=== PATIENT | female | born 1980 | race Caucasian/White ===

== ENCOUNTER 2019-10-17 01:13 | Emergency (ER) | payer OTHER ==
[~2019-10-17 01:13] MED LIST: ALPR1TAB PO; ARIP2TAB3 PO; HYDR-3470 PO; VORT10TA PO; [UNRECOGNIZED DRUG - CODE] PO
--- NOTE | 2019-10-17 01:45 | ER.PDOC ---
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 She experienced immediate pain which has worsened since the onset. Timing/Duration: this evening, constant Severity/Quality: severe Radiation: buttocks, upper legs Method of Injury: bending Modifying Factors: improves with immobilization, improves with pain medication (lortab) Associated Symptoms: sensory/motor loss (tingling lateral thighs) Allergies: Coded Allergies: latex (Unverified Allergy, Unknown, 09/18/14) Home Meds Reported Medications Vortioxetine Hydrobromide (Brintellix) 10 Mg Tablet, 10 MG PO, TABLET 09/18/14 Alprazolam (XANAX XR) 1 Mg Tab.er.24h, 1 TAB PO BID, #30 TAB 09/18/14 Aripiprazole (ABILIFY) 2 Mg Tablet, 1 TAB PO BID, #30 TAB 2 Refills 09/18/14 Hydrocodone Bit/Acetaminophen (NORCO 10-325 TABLET) 1 Each Tablet, 1 TAB PO BID PRN for PAIN, #60 TAB 09/18/14 Norethindrone A-E Estradiol (LOESTRIN) 1 Each Tablet, 1 TAB PO DAILY, #28 TAB 11 Refills 09/18/14 Past Medical History Medical History: other (chronic LBP managed by [facility]) Surgical History: appendectomy, cholecystectomy, tonsillectomy, other (piriformis release bilaterally) Review of Systems Constitutional: no symptoms reported EENTM: no symptoms reported Respiratory: no symptoms reported Cardiovascular: no symptoms reported Gastrointestinal: no symptoms reported Genitourinary: no symptoms reported Musculoskeletal: back pain Skin: no symptoms reported Physical Exam General Appearance: No Apparent Distress Cardiovascular/Respiratory: Regular Rate, Rhythm, No M/R/G Gastrointestinal: Normal Bowel Sounds Back: No CVA Tenderness, No Vertebral Tenderness, Decreased Range Of Motion, Muscle Spasm Extremities: No Evidence of Injury, Pedal Edema Neuro/Psych: Alert, mood/effect nml, No Motor/Sensory Deficits, Relexes nml Skin: Normal Color Results/Orders Results/Orders Orders - BLANCA MARTE DO Morphine Sulfate (Morphine Sulfate) (10/17/19 02:30) Diazepam (Valium) (10/17/19 02:30) Prednisone (Prednisone) (10/17/19 02:06) Prednisone (Prednisone) (10/17/19 02:06) Morphine Sulfate (Morphine Sulfate) (10/17/19 02:38) Diazepam (Valium) (10/17/19 02:37) Prednisone (Prednisone) (10/17/19 02:46) Prednisone (Prednisone) (10/17/19 02:47) Administered Medications Medications (Trade) Dose Ordered Sig/Yancy Route PRN Reason Start Time Stop Time Status Last Admin Dose Admin Diazepam (Valium) 10 mg STAT ONCE IM 10/17/19 02:30 10/17/19 03:34 DC 10/17/19 02:33 10 MG Morphine Sulfate (Morphine Sulfate) 10 mg STAT ONCE IM 10/17/19 02:30 10/17/19 03:34 DC 10/17/19 02:33 10 MG Prednisone (Prednisone) 40 mg STAT STAT PO 10/17/19 02:06 10/17/19 03:34 DC 10/17/19 02:33 40 MG Prednisone (Prednisone) 40 mg STAT STAT PO 10/17/19 02:06 10/17/19 03:34 DC 10/17/19 02:33 40 MG Departure Time of Disposition: 02:17 Disposition: 01 HOME, SELF-CARE Impression: Primary Impression: Low back pain Condition: Stable Patient Instructions: Back Pain, Adult, Chronic Back Pain Referrals: PCP,UNKNOWN (PCP) PRIMARY CARE PROVIDER Additional Instructions: Ice 10 minutes/hour. No heat therapy. No bending at the waist. No lifting >10 pounds. Take your cyclobenzaprine every 8 hours and lortab as needed. Continue steroid therapy as prescribed until all gone. If symptoms acutely worsen including loss of bowel or bladder function or inability to move one or both legs, present to the nearest ER for immediate re-evaluation. Duration or Time Spent with Pa: 30 minutes Problem Qualifiers Primary Impression: Low back pain Chronicity: acute Back pain laterality: bilateral Sciatica presence: with sciatica Sciatica laterality: bilateral sciatica Qualified Codes: M54.42 - Lumbago with sciatica, left side; M54.41 - Lumbago with sciatica, right side BLANCA MARTE DO Oct 17, 2019 01:45
[2019-10-17] MEDS ORDERED: PREDNISONE PO STA ×2 (02:06)
[2019-10-17] MEDS ORDERED: MORPHINE SULFATE IM ONE (02:30)
[2019-10-17] MEDS ORDERED: VALIUM IM ONE (02:30)
[2019-10-17] MEDS ORDERED: VALIUM ONE (02:37)
[2019-10-17] MEDS ORDERED: MORPHINE SULFATE ONE (02:38)
[2019-10-17] MEDS ORDERED: PREDNISONE ONE ×2 (02:46→02:47)
== END 2019-10-17 03:33 | disposition home or self-care (01) ==
LOC: ER 01:13
DX: M54.42 Lumbago with sciatica, left side (principal); M54.41 Lumbago with sciatica, right side; Z91.040 Latex allergy status; Z79.899 Other long term (current) drug therapy
CPT/HCPCS: 96372; 99284; J2270; J3360; J7512 ×2